=== PATIENT | male | born 1985 | race American Indian/Alaskan Native ===

== ENCOUNTER 2016-12-25 17:19 | Emergency (ER) | payer MEDICAID ==
[2016-12-25 17:19] VITALS: BMI 29.7
[2016-12-25 17:33] VITALS: BP 123/80; PULSE 70; RESP 18; TEMP 99.1; O2SAT 98
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
[2016-12-25] MEDS ORDERED: Sodium Chloride 0.9% 1,000 ML IV STA (18:45)
[2016-12-25] MEDS ORDERED: Iohexol 240 (50 ml) PO STA (18:45)
[2016-12-25] MEDS ORDERED: Iohexol 240 (50 ml) ONE (18:53)
[2016-12-25 19:15] LABS: BASO # 0.1 K/uL (0.0-0.2); BASO % 1.2 % (0.0-2.0); EOS # 0.2 K/uL (0.0-0.7); EOS % 2.3 % (0.0-4.0); HEMATOCRIT 36.6 % (35.0-51.0); LYMPH # 2.6 K/uL (1.0-4.3); LYMPH % 35.6 % (20.0-40.0); MEAN CORPUSCULAR HEMOGLOBIN 30.5 pg (27.0-31.0); MEAN CORPUSCULAR HGB CONC 33.5 g/dL (33.0-37.0); MEAN PLATELET VOLUME 9.6 fl (7.2-11.7); MONO # 0.6 K/uL (0.0-0.8); MONO % 8.5 % (0.0-10.0); NEUT # 3.8 K/uL (1.8-7.0); NEUT % 52.4 % (50.0-75.0); NRBC % 0.1 % (0.0-0.0); RED CELL DISTRIBUTION WIDTH 13.8 % (11.5-14.5); WHITE BLOOD COUNT 7.3 K/uL (4.8-10.8)
[2016-12-25 19:29] LABS: ALB/GLOB RATIO 1.4 (1.0-2.1); ALKALINE PHOSPHATASE 70 U/L (38-126); ALT/SGPT 52 U/L (21-72); AST/SGOT 40 U/L (17-59); BILIRUBIN,TOTAL 0.5 mg/dl (0.2-1.3); BLOOD UREA NITROGEN 16 mg/dl (9-20); CALCIUM 9.1 mg/dL (8.4-10.2); CARBON DIOXIDE 27 mmol/L (22-30); CHLORIDE 106 mmol/L (98-107); GFR AFRICAN-AMERICAN > 60; GLUCOSE,RANDOM 110 mg/dL (75-110); POTASSIUM 3.8 MMOL/L (3.6-5.0); SODIUM 141 mmol/l (132-148); TOTAL PROTEIN 6.8 G/DL (6.3-8.2)
[2016-12-25] MEDS ORDERED: Sodium Chloride 0.9% 50 ML IV ONE (20:40)
[2016-12-25] MEDS ORDERED: Iohexol 300 100 ML IJ ONE (20:40)
[2016-12-25] MEDS ORDERED: Morphine 4 MG/ML VIAL IVP STA (20:48)
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
== END 2016-12-25 22:58 | disposition home or self-care (01) ==
LOC: H.ER 17:19
DX: K59.00 Constipation, unspecified (principal); R10.30 Lower abdominal pain, unspecified; Z98.890 Other specified postprocedural states; Z48.817 Encounter for surgical aftercare following surgery on the skin and subcutaneous tissue
CPT/HCPCS: 74177; 80053; 85025; 96361; 96374; 96375; 99283; J1885; J2405; J7040; Q9966; Q9967